=== PATIENT | female | born 1980 | race Two or more races ===

== ENCOUNTER 2019-12-29 05:53 | Day surgery (SDC) | payer OTHER ==
[2019-12-29] MEDS ORDERED: KETO10TA2 PO (08:52)
[2019-12-29] MEDS ORDERED: CODE1TAB37 PO (08:53)
== END 2019-12-29 16:40 | disposition home or self-care (01) ==
LOC: CIR.AMB 05:53
DX: N72 Inflammatory disease of cervix uteri (principal)